=== PATIENT | female | born 1950 | race Caucasian/White ===

== ENCOUNTER 2016-05-09 05:15 | Day surgery (SDC) | payer OTHER ==
[2016-05-08 10:55] LABS: HEMATOCRIT 38.8 % (36.0-48.0); HEMOGLOBIN 12.7 g/dL (12-16); MCH 29.3 pg (26.0-34.0); MCHC 32.7 g/dL (31.0-37.0); MCV 89.6 fL (80.0-100.0); MEAN PLATELET VOLUME 10.4 fL (7.4-10.4); RBC 4.33 10x6/uL (4.00-5.40); RDW 12.7 % (11.5-14.5); WBC 12.1 10x3/uL (4.8-10.8)
[2016-05-08 11:26] LABS: CALC OSMOLALITY 289 mosm/kg (275-300); CALCIUM 9.8 mg/dL (8.5-10.1); CARBON DIOXIDE 34.1 mmol/L (21.0-32.0); CHLORIDE - SERUM 105 mmol/L (98-107); CREATININE - SERUM 0.7 mg/dL (0.6-1.3); GLUCOSE 85 mg/dL (74-106); POTASSIUM - SERUM 4.1 mmol/L (3.5-5.1); SODIUM 145 mmol/L (136-145); UREA NITROGEN 18 mg/dL (7-18); eGFR NON AFRICAN AMERICAN 90 mL/min (90-120)
[~2016-05-09] VITALS: Ht 172.7 cm; Wt 104.3 kg
[~2016-05-09 05:15] MED LIST: ASPIRIN EC325 M1 PO; BYSTOLIC20 MG PO; CYMBALTA60 MG PO; GLUCOPHAGE500 MG PO; LISINOPRIL-HCTZ1 T13 PO; PROBIOTIC1 EAC1 PO; VIMOVO 500-201 EACH PO
[2016-05-09 07:28] VITALS: BP 181/86; Ht 172.7 cm; Wt 104.3 kg
--- NOTE | 2016-05-09 10:33 | NUR ---
FAMILY CONTACTED AT 1000 WITH START TIME OF CASE
[2016-05-09] MEDS ORDERED: DEMEROL50 MG PO (11:03)
[2016-05-09] MEDS ORDERED: ZOFRAN4 MG PO (11:04)
--- NOTE | 2016-05-09 12:09 | NUR ---
1150-PT DOING WELL, NO DISTRESS TOLERATED 100% OF TRAY. IV DISCONTINUED WITH CATHETER INTACT. HELPED PATIENT TO BATHROOM PT DENIES ANY PAIN AT THIS TIME. RIGHT ARM IN SLING WITH ICE APPLIED. PT VOIDED WITHOUT ANY DIFFICULTIES, FAMILY AT BEDSIDE TO HELP PT GET DRESSED. PT DENIES ANY NEEDS OR CONCERNS AT THIS TIME
--- NOTE | 2016-05-09 12:30 | NUR ---
DISCHARGE INSTRUCTIONS REVIEWED WITH PATIENT AND SPOUSE. DISCHARGED HOME VIA WHEELCHAIR TO PRIVATE VEHICLE WITH DAUGHTER AND SPOUSE
--- NOTE | 2016-05-11 08:03 | OP ---
PATIENT NAME: KAIT SILVA MEDICAL RECORD: [id number] :54 LOCATION:[facility] ADMISSION DATE: SURGEON: LAUREN MORRIS MD DATE OF OPERATION: 05/09/2016 PREOPERATIVE DIAGNOSES: Right shoulder rotator cuff tear, acromioclavicular joint degenerative joint disease and impingement. POSTOPERATIVE DIAGNOSES: Right shoulder rotator cuff tear, acromioclavicular joint degenerative joint disease and impingement. PROCEDURE PERFORMED: Right shoulder subacromial decompression with open rotator cuff repair. SURGEON: Neymar Morris MD ANESTHESIA: General with interscalene block for postop pain. CONDITION: The patient tolerated the procedure well, was transferred to recovery room in stable condition at the termination of the procedure. INDICATIONS: This is a pleasant 71-year-old female that had an injury to her shoulder. This has been quite some time ago. This has gotten progressively worse. A shoulder MRI shows a significant tear. I discussed options with her including the fact that this would be likely difficult to repair. She understood and wished to proceed. OPERATIVE REPORT: The patient was taken to the operating room and placed in supine position. General anesthesia was obtained. She did get an interscalene block in the preop holding area. In the operating room, the right shoulder was confirmed to be the correct shoulder. She was then prepped and draped in the normal fashion. Procedure was begun by marking out portal sites and then injecting them with 0.25% Marcaine with epinephrine. The scope was placed in the posterior portal and then under direct visualization, an anterior portal was established. Through this area, the glenohumeral joint was notably intact. No significant degenerative changes. The biceps tendon was intact and with traction on this, it did not show any significant injury. The labrum was intact. Subscapularis looked good. The posterior portion of the cuff looked intact, coming up superiorly, though she had a very large defect in her anterior superior portion of the supraspinatus and infraspinatus tendons. I did take the scope out, pulled it up into the subacromial space, made a lateral portal and did debride a very large subacromial spur. I then proceeded to open laterally. I was able to get some good stitch quality into the posterior leaf of the cuff and bring this over towards the medial leaf towards labral biceps area and ____ in this area. This did give good coverage of the humeral head, although certainly was not completely as I would have liked it. Once I had this intact, I then pulled this down to a 4.5 [place] suture anchor. This overall gave good humeral head coverage. She was then copiously irrigated. I then closed with 2-0 Vicryl, then 3-0 Prolene. She was placed in a slingshot brace, awakened and transferred to recovery room in stable condition. This is a fairly significant tear. She will have to go slow, I am certainly concerned about her ability to heal this large tear. TRANSINT:[id number] Voice Confirmation ID: [id number] DOCUMENT ID: [id number] OPERATIVE REPORT [id number] KAIT SILVA, LAUREN LOPEZ MD at 0803 CC: [id number] DICTATION DATE: 05/09/16 1339 ROLL COVERER: 05/09/16 1358 [facility] 05/09/16 [place] [id number] [place] [address]
--- NOTE | 2016-06-27 12:19 | HP ---
PATIENT: NEGIN SILVA MEDICAL RECORD: [id number] ACCOUNT: [id number] LOCATION:[facility] : 54 ADMISSION DATE: 05/09/16 HISTORY AND PHYSICAL EXAMINATION DATE: 05/09/2016 HISTORY OF PRESENT ILLNESS: Negin is a pleasant 65-year-old female, who has been having significant pain in her shoulder. This has gotten progressively worse. She is no longer tolerating the pain. This is bad at night. She is having catching, popping and clicking. She is having difficulty time raising her arm. She cannot sleep on it. She has a complaint on review of systems of dry eyes, dry mouth, constipation, urinary frequency, restless legs, fatigue. She does have bruising and some sinus allergies. ALLERGIES: SHE IS ALLERGIC TO CODEINE, MORPHINE, SULFA AND TRAMADOL. PAST MEDICAL HISTORY: She has a history of arthritis, blood clots, chest pain, diabetes, heart disease and hypertension. PAST SURGICAL HISTORY: She previously had an angiogram with finger surgery and bladder surgery. PHYSICAL EXAMINATION: VITAL SIGNS: Her height is 5 foot 8 inches, weight is 226. Blood pressure 172/90, pulse 65. BMI is 34.4. HEENT: Within normal limits. CARDIOVASCULAR: Regular rate and rhythm. LUNGS: Clear. ABDOMEN: Benign. EXTREMITIES: Examination of her right shoulder reveals painful elevation. She has pain and weakness with abduction. She only has motion of 110-115 degrees of forward elevation and external rotation, 10 degrees internal rotation to the flank. NEUROLOGIC: She is neurovascularly intact otherwise. Her MRI shows findings consistent with AC joint degenerative joint disease, impingement and possible rotator cuff tear. PLAN: To bring her to the hospital for arthroscopy of the right shoulder with possible rotator cuff repair and subacromial decompression, distal clavicle excision. She understands and wished to proceed. TRANSINT:[id number] Voice Confirmation ID: [id number] DOCUMENT ID: [id number] HISTORY AND PHYSICAL [id number] NEGIN SILVA LAUREN MORRIS MD at 1219 CC: [id number] DICTATION DATE: 06/09/16 1151 DIRECT SUPPORT PROFESSIONAL: 06/09/16 1217 [facility] 05/09/16 [place] [id number]
== END 2016-05-09 12:30 | disposition home or self-care (01) ==
LOC: D.OPS 05:15 → D.PAN 07:00 → D.OPS 07:00
PROVIDERS: Anesthesiology
DX: M75.111 Incomplete rotator cuff tear or rupture of right shoulder, not specified as traumatic (principal); M13.811 Other specified arthritis, right shoulder; M75.41 Impingement syndrome of right shoulder

== ENCOUNTER 2016-07-09 06:58 | Emergency (ER) | payer OTHER ==
[2016-05-09 07:28] VITALS: BMI 35.0
[~2016-07-09 06:58] MED LIST changes: +DEMEROL50 MG PO; +ZOFRAN4 MG PO
== END 2016-07-09 08:23 | disposition home or self-care (01) ==
LOC: D.ER 06:58
DX: S50.01XA Contusion of right elbow, initial encounter (principal); S60.221A Contusion of right hand, initial encounter; S20.229A Contusion of unspecified back wall of thorax, initial encounter; W00.0XXA Fall on same level due to ice and snow, initial encounter; Y93.89 Activity, other specified; Y92.019 Unspecified place in single-family (private) house as the place of occurrence of the external cause; S62.304A Unspecified fracture of fourth metacarpal bone, right hand, initial encounter for closed fracture

== ENCOUNTER → 2017-07-09 17:48 | Outpatient (CLI) | payer OTHER ==
[2016-05-09 07:28] VITALS: BMI 35.0
== END | disposition home or self-care (01) ==
LOC: D.MAMMO 15:00
DX: Z12.31 Encounter for screening mammogram for malignant neoplasm of breast (principal)

== ENCOUNTER → 2017-07-23 20:01 | Outpatient (CLI) | payer OTHER ==
[2016-05-09 07:28] VITALS: BMI 35.0
== END | disposition home or self-care (01) ==
LOC: D.MAMMO 10:00
DX: N63.0 Unspecified lump in unspecified breast (principal)

== ENCOUNTER 2017-09-02 13:13 | Emergency (ER) | payer OTHER ==
[2016-05-09 07:28] VITALS: BMI 35.0
== END 2017-09-02 16:34 | disposition home or self-care (01) ==
LOC: D.ER 13:13
DX: S30.0XXA Contusion of lower back and pelvis, initial encounter (principal); W01.0XXA Fall on same level from slipping, tripping and stumbling without subsequent striking against object, initial encounter; Y93.89 Activity, other specified; Y92.89 Other specified places as the place of occurrence of the external cause; S39.012A Strain of muscle, fascia and tendon of lower back, initial encounter

== ENCOUNTER 2018-02-08 10:09 | Emergency (ER) | payer MEDICARE ==
[~2018-02-08] VITALS: Ht 172.7 cm; Wt 107.7 kg
[2018-02-08 10:10] VITALS: Ht 172.7 cm; Wt 107.7 kg
[2018-02-08] MEDS ORDERED: GABAPENTIN100 MG PO (10:12)
[2018-02-08] MEDS ORDERED: VITAMIN C500 MG PO (10:13)
[2018-02-08] MEDS ORDERED: NORVASC5 MG PO (10:13)
[2018-02-08] MEDS ORDERED: OSTEO BI-FLEX1 EAC1 PO (10:14)
[2018-02-08] MEDS ORDERED: DEMEROL100 MG PO (12:00)
[2018-02-08 12:48] VITALS: BP 147/74
[2018-02-12] MEDS ORDERED: GABAPENTIN100 MG PO (12:20)
== END 2018-02-08 12:50 | disposition home or self-care (01) ==
LOC: D.ER 10:09
DX: S82.842A Displaced bimalleolar fracture of left lower leg, initial encounter for closed fracture (principal); X50.1XXA Overexertion from prolonged static or awkward postures, initial encounter; Y93.01 Activity, walking, marching and hiking; Y92.017 Garden or yard in single-family (private) house as the place of occurrence of the external cause; E11.9 Type 2 diabetes mellitus without complications; I10 Essential (primary) hypertension

== ENCOUNTER 2018-02-13 06:30 | Day surgery (SDC) | payer MEDICARE ==
[2018-02-12 13:39] LABS: HEMOGLOBIN 13.4 g/dL (12-16); MCH 31.2 pg (26.0-34.0); MCHC 34.4 g/dL (31.0-37.0); MCV 90.9 fL (80.0-100.0); RBC 4.29 10x6/uL (4.00-5.40); WBC 11.9 10x3/uL (4.8-10.8)
[2018-02-12 13:53] LABS: CALC OSMOLALITY 280 mosm/kg (275-300); CALCIUM 8.9 mg/dL (8.5-10.1); CARBON DIOXIDE 28.8 mmol/L (21.0-32.0); CHLORIDE - SERUM 101 mmol/L (98-107); CREATININE - SERUM 0.8 mg/dL (0.6-1.3); GLUCOSE 96 mg/dL (74-106); POTASSIUM - SERUM 3.9 mmol/L (3.5-5.1); SODIUM 140 mmol/L (136-145); UREA NITROGEN 17 mg/dL (7-18); eGFR NON AFRICAN AMERICAN 76 mL/min (90-120)
[~2018-02-13] VITALS: Ht 172.7 cm; Wt 107.5 kg
[~2018-02-13 06:30] MED LIST changes: +DEMEROL100 MG PO; +GABAPENTIN100 MG PO; +NORVASC5 MG PO; +OSTEO BI-FLEX1 EAC1 PO; +VITAMIN C500 MG PO
[2018-02-13] MEDS ORDERED: PROZAC10 MG PO (08:23)
[2018-02-13 08:30] VITALS: BP 149/89; Ht 172.7 cm; Wt 107.5 kg
== END 2018-02-13 15:20 | disposition home or self-care (01) ==
LOC: D.OPS 06:30 → D.PAN 08:00 → D.OPS 08:30
PROVIDERS: Anesthesiology
DX: S82.62XA Displaced fracture of lateral malleolus of left fibula, initial encounter for closed fracture (principal); X58.XXXA Exposure to other specified factors, initial encounter; Z01.812 Encounter for preprocedural laboratory examination

== ENCOUNTER → 2018-03-05 16:39 | Outpatient (CLI) | payer MEDICARE ==
[2018-02-13 08:30] VITALS: BMI 36.1
[~2018-03-05 16:39] MED LIST changes: +PROZAC10 MG PO; +PROZAC20 MG PO; +RIFADIN300 MG PO; +VANCOMYCIN 1 GM/1 G1 IV
[2018-03-05 17:18] LABS: BASOPHILS 0.2 % (0-2); EOSINOPHILS 1.1 % (0-7); HEMATOCRIT 41.4 % (36.0-48.0); HEMOGLOBIN 13.8 g/dL (12-16); IMMATURE GRANULOCYTES 0.2 % (0-5); LYMPHOCYTES 31.9 % (15-50); MCH 29.9 pg (26.0-34.0); MCHC 33.3 g/dL (31.0-37.0); MCV 89.6 fL (80.0-100.0); MEAN PLATELET VOLUME 10.8 fL (7.4-10.4); MONOCYTES 9.3 % (2-11); NEUTROPHILS 57.3 % (40-80); PLATELET COUNT 321 10x3/uL (130-400); RBC 4.62 10x6/uL (4.00-5.40); RDW 12.9 % (11.5-14.5); WBC 12.5 10x3/uL (4.8-10.8)
[2018-03-05 17:23] LABS: ANION GAP 14.7 mmol/L (8-16); CALCIUM 9.2 mg/dL (8.5-10.1); CARBON DIOXIDE 27.1 mmol/L (21.0-32.0); CREATININE - SERUM 0.9 mg/dL (0.6-1.3); POTASSIUM - SERUM 3.8 mmol/L (3.5-5.1)
== END | disposition home or self-care (01) ==
LOC: D.LAB 16:39
PROVIDERS: Orthopaedic Surgery
DX: M25.572 Pain in left ankle and joints of left foot (principal); M00.9 Pyogenic arthritis, unspecified

== ENCOUNTER 2018-03-06 06:49 | Inpatient (IN) | payer MEDICARE ==
[~2018-03-06] VITALS: Ht 172.7 cm; Wt 107.5 kg
--- NOTE | ~2018-03-06 | MORECARE ---
CASE MANAGEMENT DISCHARGE SUMMARY PATIENT: KAIT SILVA UNIT: [id number] ADM DATE: 03/06/18 AGE: 67 : 52 SEX: F ROOM/BED: D.2204 AUTHOR: KIET GARZA PHYSICIAN: REFERRING PHYSICIAN: VICKY GONZALES MD DATE OF SERVICE: 03/14/18 Discharge Plan Patient Name: KAIT SILVA Facility: [facility]:[place] : 1950 Planned Disposition: Home Anticipated Discharge Date: Discharge Date: 03/12/2018 Expected LOS: 0 Initial Reviewer: [email or web address] Initial Review Date: 03/07/2018 Generated: 03/14/18 10:15 am Comments DCP- Discharge Planning Updated by [email or web address]: Radha Soto on 03/12/18 9:[address] Patient will be discharged home today with IV abx with [facility] after her 1500 dose of ABX. IMM given and explained. Patient's and daughter will be driving her home today. [employer] will start care at 8:00 am in the morning. Spoke with Deanne. Osmani with [employer] will deliver her medications to her. CM will continue to follow and assist with DC planning as needed. DCP- Discharge Planning Updated by [email or web address]: Radha Soto on 03/11/18 2:[address] iv abx solomon [facility]am: $214.27 a week 15 per day with supplies and 109.27 per week [place]: 744.96 total for everything with med ball patient will go with Osmani Diaz here for education at bedside DCP- Discharge Planning Updated by [email or web address]: Radha Soto on 03/07/18 2:[address] Patient Name: KAIT SILVA Admission Status: Elective Accout number: [id number] Admission Date: 03-06-2018 : 1950 Admission Diagnosis: Attending: VICKY GONZALES Current LOS: 1 Anticipated DC Date: Planned Disposition: Home Primary Insurance: [facility] MEDICARE SOLUTIONS Discharge Planning Comments: CM met with patient to assess discharge planning needs. Patient lives with her on her daughter's property and plans to return there at discharge. 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 Her daughter will be the one to drive her home. She has a ramp to enter her home. She has a BSC, cane, cruthes, walker, wheelchair, and shower chair at home. She is unsure if she will need home health. She is open to that & she questioned about home care like light cleaning. CM will make a referral to [facility]. CM will continue to follow and assist with DC planning as needed Unix Developer: Radha Soto DCPIA - Discharge Planning Initial Assessment Updated by [id number]: Radha Soto on 03/07/18 3:09 pm * Is the patient Alert and Oriented? Yes * How many steps to enter\exit or inside your home? ramp * PCP [facility] * Pharmacy [facility] * Preadmission Environment Home with Family * ADLs Independent * Equipment Bedside Commode Cane Crutch Glucometer Shower Chair Walker Wheelchair * List name and contact numbers for known caregivers / representatives who currently or will assist patient after discharge: BRANDI () * Verbal permission to speak to the caregivers and representatives has been obtained from the patient. N/A * Community resources currently utilized None * Additional services required to return to the preadmission environment? No * Can the patient safely return to the preadmission environment? Yes * Has this patient been hospitalized within the prior 30 days at any hospital? No Coverage Notice Reviewer: [id number] - Radha Soto Notice Issued Date-Time: 03/12/2018 9:55 Notice Type: IM Discharge Notice Notice Delivered To: Patient Relationship to Patient: Lead Programmer Analyst Name: Delivery Method: HAND - Hand Delivered Ayala Days: Prior Verbal Notification: Recipient Understood Notice: Yes Recipient Signature: Yes Med Rec Note Co-signed by Attending: Coverage Notice Comment: Last DP export: 03/12/18 2:54 Patient Name: KAIT SILVA Page [id number] at 0916 All edits/amendments must be made on the electronic document DICTATION DATE: 03/14/18914 FOOD AND DRUG RESEARCH SCIENTIST: HOSSEIN 03/14/18914 RPT#: [id number] DC DATE:03/12/18 STATUS: DIS IN [place] [id number] [place] [address] END OF REPORT
--- NOTE | ~2018-03-06 | MORECARE ---
CASE MANAGEMENT DISCHARGE SUMMARY PATIENT: KAIT SILVA UNIT: [id number] ADM DATE: 03/06/18 AGE: 67 : 52 SEX: F ROOM/BED: D.2204 AUTHOR: KIET GARZA PHYSICIAN: REFERRING PHYSICIAN: VICKY GONZALES MD DATE OF SERVICE: 03/11/18 Discharge Plan Patient Name: KAIT SILVA Facility: [facility]:[place] : 1950 Planned Disposition: Home Anticipated Discharge Date: Discharge Date: Expected LOS: Initial Reviewer: [email or web address] Initial Review Date: 03/07/2018 Generated: 03/11/18 4:41 pm Comments DCP- Discharge Planning Updated by [email or web address]: Radha Soto on 03/11/18 2:[address] iv abx solomon coram: $214.27 a week 15 per day with supplies and 109.27 per week [place]: 744.96 total for everything with med ball patient will go with Osmani Diaz here for education at bedside DCP- Discharge Planning Updated by [email or web address]: Radha Soto on 03/07/18 2:[address] Patient Name: KAIT SILVA Admission Status: Elective Accout number: [id number] Admission Date: 03-06-2018 : 1950 Admission Diagnosis: Attending: VICKY GONZALES Current LOS: 1 Anticipated DC Date: Planned Disposition: Home Primary Insurance: [facility] MEDICARE SOLUTIONS Discharge Planning Comments: CM met with patient to assess discharge planning needs. Patient lives with her on her daughter's property and plans to return there at discharge. 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 Her daughter will be the one to drive her home. She has a ramp to enter her home. She has a BSC, cane, cruthes, walker, wheelchair, and shower chair at home. She is unsure if she will need home health. She is open to that & she questioned about home care like light cleaning. CM will make a referral to [email or web address]. CM will continue to follow and assist with DC planning as needed Choreography Director: Radha Soto DCPIA - Discharge Planning Initial Assessment Updated by [email or web address]: Radha Soto on 03/07/18 3:09 pm * Is the patient Alert and Oriented? Yes * How many steps to enter\exit or inside your home? ramp * PCP [facility] * Pharmacy [facility] * Preadmission Environment Home with Family * ADLs Independent * Equipment Bedside Commode Cane Crutch Glucometer Shower Chair Walker Wheelchair * List name and contact numbers for known caregivers / representatives who currently or will assist patient after discharge: BRANDI () * Verbal permission to speak to the caregivers and representatives has been obtained from the patient. N/A * Community resources currently utilized None * Additional services required to return to the preadmission environment? No * Can the patient safely return to the preadmission environment? Yes * Has this patient been hospitalized within the prior 30 days at any hospital? No Last DP export: 03/11/18 11:45 Patient Name: KAIT SILVA Page [id number] at 1541 All edits/amendments must be made on the electronic document DICTATION DATE: 03/11/18 1541 JINRIKISHA DRIVER: HOSSEIN 03/11/18 1541 RPT#: [id number] DC DATE: STATUS: ADM IN [facility] [address] [place] [address] END OF REPORT
--- NOTE | ~2018-03-06 | MORECARE ---
CASE MANAGEMENT DISCHARGE SUMMARY PATIENT: KAIT SILVA UNIT: [id number] ADM DATE: 03/06/18 AGE: 67 : 52 SEX: F ROOM/BED: D.2204 AUTHOR: KIET GARZA PHYSICIAN: REFERRING PHYSICIAN: VICKY GONZALES MD DATE OF SERVICE: 03/11/18 Discharge Plan Patient Name: KAIT SILVA Facility: [facility]:[place] : 1950 Planned Disposition: Home Anticipated Discharge Date: Discharge Date: Expected LOS: Initial Reviewer: [email or web address] Initial Review Date: 03/07/2018 Generated: 03/11/18 1:45 pm DCP- Discharge Planning Updated by [email or web address]: Radha Soto on 03/07/18 2:[address] Patient Name: KAIT SILVA Admission Status: Elective Accout number: [id number] Admission Date: 03-06-2018 : 1950 Admission Diagnosis: Attending: VICKY GONZALES Current LOS: 1 Anticipated DC Date: Planned Disposition: Home Primary Insurance: [facility] MEDICARE SOLUTIONS Discharge Planning Comments: CM met with patient to assess discharge planning needs. Patient lives with her on her daughter's property and plans to return there at discharge. 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 Her daughter will be the one to drive her home. She has a ramp to enter her home. She has a BSC, cane, cruthes, walker, wheelchair, and shower chair at home. She is unsure if she will need home health. She is open to that & she questioned about home care like light cleaning. CM will make a referral to [facility]. CM will continue to follow and assist with DC planning as needed Natural Resource Manager: Radha Soto DCPIA - Discharge Planning Initial Assessment Updated by [email or web address]: Radha Soto on 03/07/18 3:09 pm * Is the patient Alert and Oriented? Yes * How many steps to enter\exit or inside your home? ramp * PCP [facility] * Pharm[facility] * Preadmission Environment Home with Family * ADLs Independent * Equipment Bedside Commode Cane Crutch Glucometer Shower Chair Walker Wheelchair * List name and contact numbers for known caregivers / representatives who currently or will assist patient after discharge: BRANDI () * Verbal permission to speak to the caregivers and representatives has been obtained from the patient. N/A * Community resources currently utilized None * Additional services required to return to the preadmission environment? No * Can the patient safely return to the preadmission environment? Yes * Has this patient been hospitalized within the prior 30 days at any hospital? No External Providers External Provider: [facility] Next Contact Date: Service Request Date: Service Type: Resolution: Reviewer: Comments: External Provider: [facility] Next Contact Date: Service Request Date: Service Type: Resolution: Reviewer: Comments: Last DP export: 03/07/18 2:14 p Patient Name: KAIT SILVA Page 24734 at 1245 All edits/amendments must be made on the electronic document DICTATION DATE: 03/11/18 124 CAR PAINTER: HOSSEIN 03/11/18 1245 RPT#: [id number] DC DATE: STATUS: ADM IN [facility] [address] [place] [address] END OF REPORT
--- NOTE | ~2018-03-06 | MORECARE ---
CASE MANAGEMENT DISCHARGE SUMMARY PATIENT: KAIT SILVA UNIT: [id number] ADM DATE: 03/06/18 AGE: 67 : 52 SEX: F ROOM/BED: D.2204 AUTHOR: KIET GARZA PHYSICIAN: REFERRING PHYSICIAN: VICKY GONZALES MD DATE OF SERVICE: 03/12/18 Discharge Plan Patient Name: KAIT SILVA Facility: [facility]:[place] : 1950 Planned Disposition: Home Anticipated Discharge Date: Discharge Date: Expected LOS: Initial Reviewer: [email or web address] Initial Review Date: 03/07/2018 Generated: 03/12/18 11:09 am Comments DCP- Discharge Planning Updated by [email or web address]: Radha Soto on 03/12/18 9:[address] Patient will be discharged home today with IV abx with [facility] after her 1500 dose of ABX. IMM given and explained. Patient's and daughter will be driving her home today. [employer] will start care at 8:00 am in the morning. Spoke with Karen. Conleyy with [employer] will deliver her medications to her. CM will continue to follow and assist with DC planning as needed. DCP- Discharge Planning Updated by [email or web address]: Radha Soto on 03/11/18 2:[address] iv abx solomon coram: $214.27 a week 15 per day with supplies and 109.27 per week [facility]: 744.96 total for everything with med ball patient will go with Osmani Diaz here for education at bedside DCP- Discharge Planning Updated by [id number]: Radha Soto on 03/07/18 2:[address] Patient Name: KAIT SILVA Admission Status: Elective Accout number: [id number] Admission Date: 03-06-2018 : 1950 Admission Diagnosis: Attending: VICKY GONZALES Current LOS: 1 Anticipated DC Date: Planned Disposition: Home Primary Insurance: [facility] MEDICARE SOLUTIONS Discharge Planning Comments: CM met with patient to assess discharge planning needs. Patient lives with her on her daughter's property and plans to return there at discharge. 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 Her daughter will be the one to drive her home. She has a ramp to enter her home. She has a BSC, cane, cruthes, walker, wheelchair, and shower chair at home. She is unsure if she will need home health. She is open to that & she questioned about home care like light cleaning. CM will make a referral to [email or web address]. CM will continue to follow and assist with DC planning as needed Junior Analyst: Radha Soto DCPIA - Discharge Planning Initial Assessment Updated by [email or web address]: Radha Soto on 03/07/18 3:09 pm * Is the patient Alert and Oriented? Yes * How many steps to enter\exit or inside your home? ramp * PCP ventura * Pharmacy [facility] * Preadmission Environment Home with Family * ADLs Independent * Equipment Bedside Commode Cane Crutch Glucometer Shower Chair Walker Wheelchair * List name and contact numbers for known caregivers / representatives who currently or will assist patient after discharge: BRANDI () * Verbal permission to speak to the caregivers and representatives has been obtained from the patient. N/A * Community resources currently utilized None * Additional services required to return to the preadmission environment? No * Can the patient safely return to the preadmission environment? Yes * Has this patient been hospitalized within the prior 30 days at any hospital? No External Providers External Provider: [facility] Next Contact Date: Service Request Date: Service Type: Resolution: Reviewer: Comments: Coverage Notice Reviewer: [id number] - Radha Soto Notice Issued Date-Time: 03/12/2018 9:55 Notice Type: IM Discharge Notice Notice Delivered To: Patient Relationship to Patient: Hot Top Liner Helper Name: Delivery Method: HAND - Hand Delivered Ayala Days: Prior Verbal Notification: Recipient Understood Notice: Yes Recipient Signature: Yes Med Rec Note Co-signed by Attending: Coverage Notice Comment: Last DP export: 03/12/18 9:01 Patient Name: KAIT SILVA Page 45530 at 1009 All edits/amendments must be made on the electronic document DICTATION DATE: 03/12/18 1009 SIZER MACHINE: HOSSEIN 03/12/18 1009 RPT#: [id number] [place] DATE: STATUS: ADM IN [facility] [address] [place] [address] END OF REPORT
--- NOTE | ~2018-03-06 | MORECARE ---
CASE MANAGEMENT DISCHARGE SUMMARY PATIENT: KAIT SILVA UNIT: [id number] ADM DATE: 03/06/18 AGE: 67 : 54 SEX: F ROOM/BED: D.2204 AUTHOR: KIET GARZA PHYSICIAN: REFERRING PHYSICIAN: VICKY GONZALES MD DATE OF SERVICE: 03/07/18 Discharge Plan Patient Name: KAIT SILVA Facility: [facility]:[place] : 1950 Planned Disposition: Home Anticipated Discharge Date: Discharge Date: Expected LOS: Initial Reviewer: [email or web address] Initial Review Date: 03/07/2018 Generated: 03/07/18 4:14 pm Comments DCP- Discharge Planning Updated by [email or web address]: Radha Soto on 03/07/18 2:[address] Patient Name: KAIT SILVA Admission Status: Elective Accout number: [id number] Admission Date: 03-06-2018 : 1950 Admission Diagnosis: Attending: VICKY GONZALES Current LOS: 1 Anticipated DC Date: Planned Disposition: Home Primary Insurance: [facility] MEDICARE SOLUTIONS Discharge Planning Comments: CM met with patient to assess discharge planning needs. Patient lives with her on her daughter's property and plans to return there at discharge. 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 Her daughter will be the one to drive her home. She has a ramp to enter her home. She has a BSC, cane, cruthes, walker, wheelchair, and shower chair at home. She is unsure if she will need home health. She is open to that & she questioned about home care like light cleaning. CM will make a referral to [employer]. CM will continue to follow and assist with DC planning as needed Medical Certification Specialist: Radha Soto DCPIA - Discharge Planning Initial Assessment Updated by [email or web address]: Radha Soto on 03/07/18 3:09 pm * Is the patient Alert and Oriented? Yes * How many steps to enter\exit or inside your home? ramp * PCP [facility] * [facility] * Preadmission Environment Home with Family * ADLs Independent * Equipment Bedside Commode Cane Crutch Glucometer Shower Chair Walker Wheelchair * List name and contact numbers for known caregivers / representatives who currently or will assist patient after discharge: BRANDI () * Verbal permission to speak to the caregivers and representatives has been obtained from the patient. N/A * Community resources currently utilized None * Additional services required to return to the preadmission environment? No * Can the patient safely return to the preadmission environment? Yes * Has this patient been hospitalized within the prior 30 days at any hospital? No Last DP export: 03/07/18 2:06 p Patient Name: KAIT SILVA Page 51700 at 1514 All edits/amendments must be made on the electronic document DICTATION DATE: 03/07/181513 INFORMATION SYSTEMS PROFESSOR: HOSSEIN 03/07/181513 RPT#: [id number] DC DATE: STATUS: ADM IN [facility] [address] [place] [address] END OF REPORT
--- NOTE | ~2018-03-06 | MORECARE ---
CASE MANAGEMENT DISCHARGE SUMMARY PATIENT: KAIT SILVA UNIT: [id number] ADM DATE: 03/06/18 AGE: 67 : 52 SEX: F ROOM/BED: D.2204 AUTHOR: KIET GARZA PHYSICIAN: REFERRING PHYSICIAN: VICKY GONZALES MD DATE OF SERVICE: 03/12/18 Discharge Plan Patient Name: KAIT SILVA Facility: [facility]:[place] : 1950 Planned Disposition: Home Anticipated Discharge Date: Discharge Date: Expected LOS: Initial Reviewer: [email or web address] Initial Review Date: 03/07/2018 Generated: 03/12/18 4:54 pm Comments DCP- Discharge Planning Updated by [email or web address]: Radha Soto on 03/12/18 9:[address] Patient will be discharged home today with IV abx with [facility] after her 1500 dose of ABX. IMM given and explained. Patient's and daughter will be driving her home today. [facility] will start care at 8:00 am in the morning. Spoke with Karen. Conleyy with [facility] will deliver her medications to her. CM will continue to follow and assist with DC planning as needed. DCP- Discharge Planning Updated by [email or web address]: Radha Soto on 03/11/18 2:[address] iv abx solomon [facility]am: $214.27 a week 15 per day with supplies and 109.27 per week [facility]: 744.96 total for everything with med ball patient will go with Osmani Diaz here for education at bedside DCP- Discharge Planning Updated by [email or web address]: Radha Soto on 03/07/18 2:[address] Patient Name: KAIT SILVA Admission Status: Elective Accout number: [id number] Admission Date: 03-06-2018 : 1950 Admission Diagnosis: Attending: VICKY GONZALES Current LOS: 1 Anticipated DC Date: Planned Disposition: Home Primary Insurance: [facility] MEDICARE SOLUTIONS Discharge Planning Comments: CM met with patient to assess discharge planning needs. Patient lives with her on her daughter's property and plans to return there at discharge. 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 Her daughter will be the one to drive her home. She has a ramp to enter her home. She has a BSC, cane, cruthes, walker, wheelchair, and shower chair at home. She is unsure if she will need home health. She is open to that & she questioned about home care like light cleaning. CM will make a referral to [facility]. CM will continue to follow and assist with DC planning as needed Chip Machine Operator: Radha Soto DCPIA - Discharge Planning Initial Assessment Updated by [email or web address]: Radha Soto on 03/07/18 3:09 pm * Is the patient Alert and Oriented? Yes * How many steps to enter\exit or inside your home? ramp * PCP [facility] * Pharmacy [facility] [place] * Preadmission Environment Home with Family * ADLs Independent * Equipment Bedside Commode Cane Crutch Glucometer Shower Chair Walker Wheelchair * List name and contact numbers for known caregivers / representatives who currently or will assist patient after discharge: BRANDI () * Verbal permission to speak to the caregivers and representatives has been obtained from the patient. N/A * Community resources currently utilized None * Additional services required to return to the preadmission environment? No * Can the patient safely return to the preadmission environment? Yes * Has this patient been hospitalized within the prior 30 days at any hospital? No External Providers External Provider: [facility] Next Contact Date: Service Request Date: Service Type: Resolution: Reviewer: Comments: Coverage Notice Reviewer: [id number] - Radha Soto Notice Issued Date-Time: 03/12/2018 9:55 Notice Type: IM Discharge Notice Notice Delivered To: Patient Relationship to Patient: Plush Brusher Name: Delivery Method: HAND - Hand Delivered Ayala Days: Prior Verbal Notification: Recipient Understood Notice: Yes Recipient Signature: Yes Med Rec Note Co-signed by Attending: Coverage Notice Comment: Last DP export: 03/12/18 9:09 Patient Name: KAIT SILVA Page [id number] at 1550 All edits/amendments must be made on the electronic document DICTATION DATE: 03/12/181553 INSOLE DEPARTMENT WORKER: HOSSEIN 03/12/181553 RPT#: [id number] DC DATE: STATUS: ADM IN [facility] [address] [place] [address] END OF REPORT
--- NOTE | ~2018-03-06 | MORECARE ---
CASE MANAGEMENT DISCHARGE SUMMARY PATIENT: KAIT SILVA UNIT: [id number] ADM DATE: 03/06/18 AGE: 67 : 52 SEX: F ROOM/BED: D.2204 AUTHOR: KIET GARZA PHYSICIAN: REFERRING PHYSICIAN: VICKY GONZALES MD DATE OF SERVICE: 03/12/18 Discharge Plan Patient Name: KAIT SILVA Facility: [facility]:[place] : 1950 Planned Disposition: Home Anticipated Discharge Date: Discharge Date: Expected LOS: Initial Reviewer: [email or web address] Initial Review Date: 03/07/2018 Generated: 03/12/18 11:01 am Comments DCP- Discharge Planning Updated by [email or web address]: Radha Soot on 03/12/18 9:[address] Patient will be discharged home today with IV abx with [facility] after her 1500 dose of ABX. IMM given and explained. Patient's and daughter will be driving her home today. [facility] will start care at 8:00 am in the morning. Spoke with Karen. Conleyy with [facility] will deliver her medications to her. CM will continue to follow and assist with DC planning as needed. DCP- Discharge Planning Updated by [id number]: Radha Soto on 03/11/18 2:[address] iv abx solomon coram: $214.27 a week 15 per day with supplies and 109.27 per week [facility]: 744.96 total for everything with med ball patient will go with Osmani Diaz here for education at bedside DCP- Discharge Planning Updated by [email or web address]: Radha Soto on 03/07/18 2:[address] Patient Name: KAIT SILVA Admission Status: Elective Accout number: [id number] Admission Date: 03-06-2018 : 1950 Admission Diagnosis: Attending: VICKY GONZALES Current LOS: 1 Anticipated DC Date: Planned Disposition: Home Primary Insurance: [facility] MEDICARE SOLUTIONS Discharge Planning Comments: CM met with patient to assess discharge planning needs. Patient lives with her on her daughter's property and plans to return there at discharge. 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 Her daughter will be the one to drive her home. She has a ramp to enter her home. She has a BSC, cane, cruthes, walker, wheelchair, and shower chair at home. She is unsure if she will need home health. She is open to that & she questioned about home care like light cleaning. CM will make a referral to [facility]. CM will continue to follow and assist with DC planning as needed Senior Ssis Developer: Radha Soto DCPIA - Discharge Planning Initial Assessment Updated by [email or web address]: Radha Soto on 03/07/18 3:09 pm * Is the patient Alert and Oriented? Yes * How many steps to enter\exit or inside your home? ramp * PCP [facility] * Pharmacy [facility] [place] * Preadmission Environment Home with Family * ADLs Independent * Equipment Bedside Commode Cane Crutch Glucometer Shower Chair Walker Wheelchair * List name and contact numbers for known caregivers / representatives who currently or will assist patient after discharge: BRANDI () * Verbal permission to speak to the caregivers and representatives has been obtained from the patient. N/A * Community resources currently utilized None * Additional services required to return to the preadmission environment? No * Can the patient safely return to the preadmission environment? Yes * Has this patient been hospitalized within the prior 30 days at any hospital? No Coverage Notice Reviewer: [id number] - Radha Soto Notice Issued Date-Time: 03/12/2018 9:55 Notice Type: IM Discharge Notice Notice Delivered To: Patient Relationship to Patient: Bacon Skin Lifter Name: Delivery Method: HAND - Hand Delivered Ayala Days: Prior Verbal Notification: Recipient Understood Notice: Yes Recipient Signature: Yes Med Rec Note Co-signed by Attending: Coverage Notice Comment: Last DP export: 03/11/18 2:41 Patient Name: KAIT SILVA Page 31972 at 1001 All edits/amendments must be made on the electronic document DICTATION DATE: 03/12/18 1001 TEST AND TURN UP TECHNICIAN: HOSSEIN 03/12/18 1001 RPT#: [id number] DC DATE: STATUS: ADM IN [facility] [address] [place] [address] END OF REPORT
--- NOTE | ~2018-03-06 | MORECARE ---
CASE MANAGEMENT DISCHARGE SUMMARY PATIENT: KAIT SILVA UNIT: [id number] ADM DATE: 03/06/18 AGE: 67 : 52 SEX: F ROOM/BED: D.2204 AUTHOR: KIET GARZA PHYSICIAN: REFERRING PHYSICIAN: VICKY GONZALES MD DATE OF SERVICE: 03/07/18 Discharge Plan Patient Name: KAIT SILVA Facility: [facility]:[place] : 1950 Planned Disposition: Home Anticipated Discharge Date: Discharge Date: Expected LOS: Initial Reviewer: [email or web address] Initial Review Date: 03/07/2018 Generated: 03/07/18 4:05 pm Patient Name: KAIT SILVA Page 77796 at 1506 All edits/amendments must be made on the electronic document DICTATION DATE: 03/07/18 1505 SUPERVISORY CIVIL ENGINEER: HOSSEIN 03/07/18 1505 RPT#: [id number] DC DATE: STATUS: ADM IN [facility] [address] [place] [address] END OF REPORT
[~2018-03-06 06:49] MED LIST changes: -PROZAC20 MG PO; -RIFADIN300 MG PO; -VANCOMYCIN 1 GM/1 G1 IV
[2018-03-06 08:34] VITALS: BP 143/78; BMI 36.1
[2018-03-06 18:08] VITALS: BMI 36.1
[2018-03-06 18:19] LABS: BASOPHILS 0.3 % (0-2); HEMATOCRIT 35.4 % (36.0-48.0); HEMOGLOBIN 11.4 g/dL (12-16); IMMATURE GRANULOCYTES 0.2 % (0-5); LYMPHOCYTES 35.7 % (15-50); MCH 29.4 pg (26.0-34.0); MCHC 32.2 g/dL (31.0-37.0); MCV 91.2 fL (80.0-100.0); MEAN PLATELET VOLUME 10.7 fL (7.4-10.4); NEUTROPHILS 53.8 % (40-80); RBC 3.88 10x6/uL (4.00-5.40)
[2018-03-06 18:23] LABS: PLATELET COUNT 234 10x3/uL (130-400)
[2018-03-06 18:36] LABS: CARBON DIOXIDE 25.2 mmol/L (21.0-32.0); CHLORIDE - SERUM 107 mmol/L (98-107); CREATININE - SERUM 0.8 mg/dL (0.6-1.3); POTASSIUM - SERUM 3.7 mmol/L (3.5-5.1); SODIUM 143 mmol/L (136-145); eGFR NON AFRICAN AMERICAN 76 mL/min (90-120)
[2018-03-06 18:37] LABS: CALC OSMOLALITY 288 mosm/kg (275-300); GLUCOSE 172 mg/dL (74-106); UREA NITROGEN 12 mg/dL (7-18)
[2018-03-06 21:32] VITALS: BP 149/70
[2018-03-07 05:19] VITALS: BP 135/61
[2018-03-07 08:30] VITALS: BP 170/73
[2018-03-07 12:45] VITALS: BP 142/67
[2018-03-07 12:50] VITALS: Ht 172.7 cm; Wt 107.5 kg
[2018-03-07 17:06] VITALS: BP 138/72
[2018-03-07 19:47] VITALS: BP 143/77
[2018-03-08 04:56] VITALS: BP 130/76
[2018-03-08 06:46] LABS: BASOPHILS 0.2 % (0-2); EOSINOPHILS 2.8 % (0-7); HEMATOCRIT 35.9 % (36.0-48.0); HEMOGLOBIN 11.6 g/dL (12-16); IMMATURE GRANULOCYTES 0.1 % (0-5); LYMPHOCYTES 37.9 % (15-50); MCH 29.5 pg (26.0-34.0); MCHC 32.3 g/dL (31.0-37.0); MCV 91.3 fL (80.0-100.0); MEAN PLATELET VOLUME 11.2 fL (7.4-10.4); MONOCYTES 10.2 % (2-11); NEUTROPHILS 48.8 % (40-80); PLATELET COUNT 218 10x3/uL (130-400); RBC 3.93 10x6/uL (4.00-5.40); RDW 12.7 % (11.5-14.5)
[2018-03-08 07:08] LABS: CALC OSMOLALITY 283 mosm/kg (275-300); CALCIUM 8.8 mg/dL (8.5-10.1); CARBON DIOXIDE 33.2 mmol/L (21.0-32.0); CHLORIDE - SERUM 104 mmol/L (98-107); CREATININE - SERUM 0.7 mg/dL (0.6-1.3); GLUCOSE 105 mg/dL (74-106); POTASSIUM - SERUM 3.9 mmol/L (3.5-5.1); SODIUM 143 mmol/L (136-145); UREA NITROGEN 11 mg/dL (7-18); eGFR NON AFRICAN AMERICAN 89 mL/min (90-120)
[2018-03-08 08:25] VITALS: BP 148/73
[2018-03-08 12:50] VITALS: BP 140/68
[2018-03-08 17:11] VITALS: BP 146/65
[2018-03-08 19:44] VITALS: BP 150/61
[2018-03-09 01:05] VITALS: BP 150/69
[2018-03-09 04:45] VITALS: BP 142/92
[2018-03-09 06:16] LABS: BASOPHILS 0.2 % (0-2); EOSINOPHILS 3.5 % (0-7); HEMATOCRIT 34.1 % (36.0-48.0); HEMOGLOBIN 11.2 g/dL (12-16); IMMATURE GRANULOCYTES 0.2 % (0-5); LYMPHOCYTES 33.4 % (15-50); MCH 29.4 pg (26.0-34.0); MCHC 32.8 g/dL (31.0-37.0); MCV 89.5 fL (80.0-100.0); MEAN PLATELET VOLUME 11.5 fL (7.4-10.4); MONOCYTES 9.4 % (2-11); NEUTROPHILS 53.3 % (40-80); PLATELET COUNT 210 10x3/uL (130-400); RBC 3.81 10x6/uL (4.00-5.40); RDW 12.7 % (11.5-14.5)
[2018-03-09 06:28] LABS: CALCIUM 8.4 mg/dL (8.5-10.1); CARBON DIOXIDE 29.3 mmol/L (21.0-32.0); CHLORIDE - SERUM 102 mmol/L (98-107); CREATININE - SERUM 0.7 mg/dL (0.6-1.3); GLUCOSE 100 mg/dL (74-106); SODIUM 140 mmol/L (136-145); eGFR NON AFRICAN AMERICAN 89 mL/min (90-120)
[2018-03-09 06:35] LABS: CALC OSMOLALITY 276 mosm/kg (275-300); POTASSIUM - SERUM 3.3 mmol/L (3.5-5.1); UREA NITROGEN 8 mg/dL (7-18)
[2018-03-09 09:18] VITALS: BP 138/36
[2018-03-09 12:28] VITALS: BP 150/69
[2018-03-09 16:28] VITALS: BP 132/67
[2018-03-09 20:06] VITALS: BP 127/66
[2018-03-10 04:26] VITALS: BP 134/68
[2018-03-10 05:02] LABS: BASOPHILS 0.2 % (0-2); EOSINOPHILS 3.9 % (0-7); HEMATOCRIT 34.8 % (36.0-48.0); HEMOGLOBIN 11.4 g/dL (12-16); IMMATURE GRANULOCYTES 0.1 % (0-5); LYMPHOCYTES 38.6 % (15-50); MCH 29.2 pg (26.0-34.0); MCHC 32.8 g/dL (31.0-37.0); MEAN PLATELET VOLUME 11.1 fL (7.4-10.4); MONOCYTES 9.1 % (2-11); NEUTROPHILS 48.1 % (40-80); PLATELET COUNT 210 10x3/uL (130-400); RBC 3.91 10x6/uL (4.00-5.40); RDW 12.7 % (11.5-14.5); WBC 9.6 10x3/uL (4.8-10.8)
[2018-03-10 05:09] LABS: CALC OSMOLALITY 280 mosm/kg (275-300); CARBON DIOXIDE 32.1 mmol/L (21.0-32.0); CHLORIDE - SERUM 103 mmol/L (98-107); CREATININE - SERUM 0.6 mg/dL (0.6-1.3); GLUCOSE 113 mg/dL (74-106); POTASSIUM - SERUM 3.1 mmol/L (3.5-5.1); SODIUM 141 mmol/L (136-145); eGFR NON AFRICAN AMERICAN > 90 mL/min (90-120)
[2018-03-10 05:14] LABS: UREA NITROGEN 11 mg/dL (7-18)
[2018-03-10 09:47] VITALS: BP 149/75
[2018-03-10 13:46] VITALS: BP 145/78
[2018-03-10 16:47] VITALS: BP 144/66
[2018-03-10 21:29] VITALS: BP 164/83
[2018-03-11 05:02] VITALS: BP 153/75
[2018-03-11 05:23] LABS: BASOPHILS 0.2 % (0-2); EOSINOPHILS 4.9 % (0-7); HEMATOCRIT 34.9 % (36.0-48.0); HEMOGLOBIN 11.5 g/dL (12-16); IMMATURE GRANULOCYTES 0.2 % (0-5); LYMPHOCYTES 38.9 % (15-50); MCH 29.6 pg (26.0-34.0); MCV 89.7 fL (80.0-100.0); MEAN PLATELET VOLUME 11.1 fL (7.4-10.4); MONOCYTES 8.9 % (2-11); NEUTROPHILS 46.9 % (40-80); PLATELET COUNT 238 10x3/uL (130-400); RBC 3.89 10x6/uL (4.00-5.40); RDW 12.9 % (11.5-14.5)
[2018-03-11 05:48] LABS: CALC OSMOLALITY 284 mosm/kg (275-300); CALCIUM 8.6 mg/dL (8.5-10.1); CARBON DIOXIDE 29.9 mmol/L (21.0-32.0); CHLORIDE - SERUM 104 mmol/L (98-107); CREATININE - SERUM 0.7 mg/dL (0.6-1.3); GLUCOSE 102 mg/dL (74-106); POTASSIUM - SERUM 3.3 mmol/L (3.5-5.1); SODIUM 143 mmol/L (136-145); UREA NITROGEN 12 mg/dL (7-18); eGFR NON AFRICAN AMERICAN 89 mL/min (90-120)
[2018-03-11 08:32] VITALS: BP 170/83
[2018-03-11 12:48] VITALS: BP 144/85
[2018-03-11 21:11] VITALS: BP 155/93
[2018-03-12 00:35] VITALS: BP 149/72
[2018-03-12 05:18] VITALS: BP 126/73
[2018-03-12 06:59] LABS: BASOPHILS 0.2 % (0-2); HEMOGLOBIN 11.6 g/dL (12-16); IMMATURE GRANULOCYTES 0.3 % (0-5); LYMPHOCYTES 35.8 % (15-50); MCH 29.2 pg (26.0-34.0); MCHC 32.2 g/dL (31.0-37.0); MCV 90.7 fL (80.0-100.0); MEAN PLATELET VOLUME 11.2 fL (7.4-10.4); MONOCYTES 8.5 % (2-11); NEUTROPHILS 51.2 % (40-80); PLATELET COUNT 237 10x3/uL (130-400); RBC 3.97 10x6/uL (4.00-5.40); RDW 12.9 % (11.5-14.5); WBC 11.9 10x3/uL (4.8-10.8)
[2018-03-12 07:17] LABS: CALC OSMOLALITY 281 mosm/kg (275-300); CALCIUM 9.1 mg/dL (8.5-10.1); CARBON DIOXIDE 29.5 mmol/L (21.0-32.0); CHLORIDE - SERUM 101 mmol/L (98-107); CREATININE - SERUM 0.8 mg/dL (0.6-1.3); GLUCOSE 126 mg/dL (74-106); POTASSIUM - SERUM 3.6 mmol/L (3.5-5.1); SODIUM 140 mmol/L (136-145); UREA NITROGEN 15 mg/dL (7-18); eGFR NON AFRICAN AMERICAN 76 mL/min (90-120)
[2018-03-12 08:35] VITALS: BP 168/61
[2018-03-12] MEDS ORDERED: RIFADIN300 MG PO (09:37)
[2018-03-12] MEDS ORDERED: VANCOMYCIN 1 GM/1 G1 IV ×2 (09:37→10:09)
[2018-03-12 09:54] LABS: ERYTHROCYTE SEDIMENTATION RATE 32 mm/hr (0-30)
[2018-03-12 11:44] VITALS: BP 131/57
[2018-03-12] MEDS ORDERED: PROZAC20 MG PO (12:10)
== END 2018-03-12 17:32 | disposition home health service (06) | DRG 857 ==
LOC: D.OPS 06:49 → D.MS 06:49 → D.OPS 08:45 → EDSTATUS 08:45 → D.MS 17:35 → D.OPS 17:35 → D.MS 17:36 → D.OPS 17:36 → D.MS 17:36
PROVIDERS: Internal Medicine Nephrology; Orthopaedic Surgery
PROC: 0QDK0ZZ Extraction of Left Fibula, Open Approach (ICD-10-PCS; principal; 2018-03-06 08:45)
DX: T81.42XA Infection following a procedure, deep incisional surgical site, initial encounter (principal); T81.32XA Disruption of internal operation (surgical) wound, not elsewhere classified, initial encounter; M86.9 Osteomyelitis, unspecified; E11.9 Type 2 diabetes mellitus without complications; I10 Essential (primary) hypertension; I48.91 Unspecified atrial fibrillation; B95.7 Other staphylococcus as the cause of diseases classified elsewhere

== ENCOUNTER 2018-03-15 15:18 | Outpatient (CLI) | payer MEDICARE ==
[2018-03-07 12:50] VITALS: BMI 36.0
[~2018-03-15 15:18] MED LIST changes: +PROZAC20 MG PO; +RIFADIN300 MG PO; +VANCOMYCIN 1 GM/1 G1 IV
== END 2018-03-15 16:06 | disposition home or self-care (01) ==
LOC: D.OPS 15:18
DX: T84.59XA Infection and inflammatory reaction due to other internal joint prosthesis, initial encounter (principal); Z01.812 Encounter for preprocedural laboratory examination

== ENCOUNTER → 2018-03-18 11:21 | Outpatient (CLI) | payer MEDICARE ==
[2018-03-07 12:50] VITALS: BMI 36.0
[2018-03-18 11:34] LABS: BASOPHILS 0.4 % (0-2); EOSINOPHILS 2.8 % (0-7); HEMATOCRIT 36.8 % (36.0-48.0); HEMOGLOBIN 12.1 g/dL (12-16); IMMATURE GRANULOCYTES 0.3 % (0-5); LYMPHOCYTES 28.9 % (15-50); MCH 29.2 pg (26.0-34.0); MCHC 32.9 g/dL (31.0-37.0); MCV 88.7 fL (80.0-100.0); MEAN PLATELET VOLUME 10.6 fL (7.4-10.4); MONOCYTES 16.4 % (2-11); NEUTROPHILS 51.2 % (40-80); PLATELET COUNT 282 10x3/uL (130-400); RBC 4.15 10x6/uL (4.00-5.40); RDW 12.8 % (11.5-14.5)
[2018-03-18 11:47] LABS: C-REACTIVE PROTEIN 3.6 mg/dL (0.0-0.9); CREATININE - SERUM 0.7 mg/dL (0.6-1.3); VANCOMYCIN - TROUGH 15.3 ug/mL (10.0-20.0)
[2018-03-18 14:19] LABS: ERYTHROCYTE SEDIMENTATION RATE 40 mm/hr (0-30)
== END | disposition home or self-care (01) ==
LOC: D.LABREF 11:21
PROVIDERS: Student in an Organized Health Care Education/Training Program
DX: L08.9 Local infection of the skin and subcutaneous tissue, unspecified (principal)

== ENCOUNTER → 2018-12-03 17:05 | Outpatient (CLI) | payer MEDICARE, OTHER ==
[2018-03-07 12:50] VITALS: BMI 36.0
[~2018-12-03 17:05] MED LIST changes: +HYDROCODONE-A1 UDTA2 PO; +VITAMIN D2000 UNIT PO; +Vancomycin 1.25 GM/N IV
== END | disposition home or self-care (01) ==
LOC: D.LABREF 17:05
PROVIDERS: ATTEND Orthopaedic Surgery
DX: M86.679 Other chronic osteomyelitis, unspecified ankle and foot (principal)

== ENCOUNTER 2018-12-04 10:34 | Inpatient (IN) | payer MEDICARE, OTHER ==
[~2018-12-04] VITALS: Ht 172.7 cm; Wt 101.8 kg
[2018-12-04] VITALS (8 sets, daily range): BP systolic 137–166; BP diastolic 68–79; BMI 34.2
[~2018-12-04 10:34] MED LIST changes: -HYDROCODONE-A1 UDTA2 PO; +LISINOPRIL-HCT1 EAC7 PO; -LISINOPRIL-HCTZ1 T13 PO; -VITAMIN D2000 UNIT PO; -Vancomycin 1.25 GM/N IV
[2018-12-04 11:07] LABS: HEMATOCRIT 38.3 % (36.0-48.0); HEMOGLOBIN 12.9 g/dL (12-16); LYMPHOCYTES 34.4 % (15-50); MCH 29.3 pg (26.0-34.0); MCHC 33.7 g/dL (31.0-37.0); NEUTROPHILS 59.2 % (40-80); PLATELET COUNT 276 10x3/uL (130-400); RDW 12.3 % (11.5-14.5); WBC 9.1 10x3/uL (4.8-10.8)
[2018-12-04 11:19] LABS: ANION GAP 10.4 mmol/L (8-16); CALCIUM 9.2 mg/dL (8.5-10.1); CARBON DIOXIDE 30.4 mmol/L (21.0-32.0); CREATININE - SERUM 0.9 mg/dL (0.6-1.3); POTASSIUM - SERUM 3.8 mmol/L (3.5-5.1)
--- NOTE | 2018-12-04 11:55 | NUR ---
[facility] CALLED AT THIS TIME FOR SUICIDE SCREEN.
--- NOTE | 2018-12-04 12:15 | NUR ---
DR. COLLADO NOTIFIED AND REVIEWED PT'S BEHAVIOR AND ASSESSMENTRESULTS. PT IS A LOW RISK PER DR. COLLADO. DR. COLLADO STTAED TO GIVE RESOURCES TO PT AT TIME OF DISCHARGE. NO FURTHER ORDERS AT THIS TIME. RESOURCES REVIEWED WITH PT AND SHE VERBALIZED UNDERSTANDING.
--- NOTE | 2018-12-04 19:27 | NUR ---
PT REPORTS BOTTOM FRONT TOOTH IS LOOSE, DEMONSTRATED IT TO THIS NURSE. WILL REPORT TO ANESTHESIA FOR FOLLOWUP.
--- NOTE | 2018-12-04 19:40 | NUR ---
RECEIVED PT FROM OR VIA STRETCHER. DROWSY. ORIENTED X4. FAMILY AT BEDSIDE. DENIES PAIN AT THIS TIME. REPORTS LOOSE TOOTH. RESP SHALLOW NONLABORED. O2 @ 2L/NC. DRSG NOTED TO LLE WITH HEMOVAC WITH BLOODY DRAINAGE NOTED. PEDAL PULSES GOOD. NO EDEMA. SALINE LOCK NOTED TO RT AC. SCD ON. LEONID HOSE ON RLE. V/S STABLE. SR ELEVATED X2. CL IN REACH.
--- NOTE | 2018-12-05 00:05 | NUR ---
MEDICATED WITH DEMEROL FOR C/O PAIN IN LLE. FAMILY AT BEDSIDE. HAS BEEN INCONT OF BLADDER AT TIMES TONIGHT. CL IN REACH.
[2018-12-05 02:02] VITALS: BP 151/82
[2018-12-05 05:04] VITALS: BP 138/84
[2018-12-05 05:15] LABS: BASOPHILS 0.2 % (0-2); EOSINOPHILS 1.7 % (0-7); HEMATOCRIT 35.7 % (36.0-48.0); HEMOGLOBIN 11.8 g/dL (12-16); IMMATURE GRANULOCYTES 0.2 % (0-5); LYMPHOCYTES 25.2 % (15-50); MCH 29.1 pg (26.0-34.0); MCHC 33.1 g/dL (31.0-37.0); MCV 87.9 fL (80.0-100.0); MEAN PLATELET VOLUME 10.5 fL (7.4-10.4); MONOCYTES 8.2 % (2-11); NEUTROPHILS 64.5 % (40-80); PLATELET COUNT 251 10x3/uL (130-400); RBC 4.06 10x6/uL (4.00-5.40)
[2018-12-05 05:20] LABS: WBC 12.6 10x3/uL (4.8-10.8)
[2018-12-05 05:27] LABS: ANION GAP 11.8 mmol/L (8-16); CALCIUM 8.2 mg/dL (8.5-10.1); CARBON DIOXIDE 27.9 mmol/L (21.0-32.0); CREATININE - SERUM 0.9 mg/dL (0.6-1.3); POTASSIUM - SERUM 3.7 mmol/L (3.5-5.1)
[2018-12-05 06:16] VITALS: Ht 172.7 cm; Wt 101.8 kg
[2018-12-05] MEDS ORDERED: VITAMIN D2000 UNIT PO (07:39)
--- NOTE | 2018-12-05 07:41 | NUR ---
ALERT AND ORIENTED. LUNGS CLEAR BILATERALLY IN ALL HOU. HEART SOUNDS S1 AND S2 HEARD IN ALL HOU. BOWEL SOUNDS ACTIVE X 4. JOHN WRAP AND HEMOVAC TO LEFT ANKLE. IV TO RIGHT ACT PATENT WITHOUT REDNESS. SKIN INTACT WITHOUT REDNESS. ASSISTED TO BSC PER REQUEST. DENIES FURTHER NEEDS. BED LOW. CALL GAMBINO AND PERSONAL ITEMS IN REACH. WILL CONTINUE TO MONITOR.
[2018-12-05 09:37] VITALS: BP 146/64
--- NOTE | 2018-12-05 11:26 | NUR ---
PATIENT SLEEPING. WILL CONTINUE TO MONITOR.
--- NOTE | 2018-12-05 13:02 | NUR ---
RESTING IN BED. DENIES PAIN. DENIES NEEDS. WILL CONTINUE TO MONITOR.
[2018-12-05 13:07] VITALS: BP 141/64
--- NOTE | 2018-12-05 15:56 | NUR ---
RESTING IN BED. DENIES PAIN. DENIES NEEDS. IV REMOVED FROM RFA WITH TIP INTACT. USING REAL PICC FOR ABX. WILL CONTINUE TO MONITOR.
[2018-12-05 18:14] VITALS: BP 115/46
--- NOTE | 2018-12-05 18:24 | NUR ---
RESTING IN BED. DENIES PAIN. DENIES NEEDS. BED LOW. CALL GAMBINO AND PERSONAL ITEMS IN REACH. AT BEDSIDE.
--- NOTE | 2018-12-05 19:45 | NUR ---
BARTOLO IN BED. A&O X4. DRESSING TO LEFT ANKLE C/D/I. HEMOVAC COMPRESSED. DENIES PAIN, NO NEEDS VOICED AT THIS TIME, WILL CONTINUE TO MONITOR.
[2018-12-05 20:43] VITALS: BP 142/58
[2018-12-06 00:54] VITALS: BP 104/68
--- NOTE | 2018-12-06 04:34 | NUR ---
I have reviewed this patient and I concur with the Shift Assessment completed by the Licensed Practical Nurse today this shift.
[2018-12-06 05:41] VITALS: BP 149/67
[2018-12-06 06:45] LABS: BASOPHILS 0.2 % (0-2); HEMATOCRIT 34.5 % (36.0-48.0); HEMOGLOBIN 11.3 g/dL (12-16); IMMATURE GRANULOCYTES 0.2 % (0-5); LYMPHOCYTES 28.2 % (15-50); MCH 28.8 pg (26.0-34.0); MCHC 32.8 g/dL (31.0-37.0); MEAN PLATELET VOLUME 10.7 fL (7.4-10.4); MONOCYTES 9.5 % (2-11); NEUTROPHILS 58.9 % (40-80); PLATELET COUNT 233 10x3/uL (130-400); RBC 3.92 10x6/uL (4.00-5.40); RDW 13.1 % (11.5-14.5); WBC 11.9 10x3/uL (4.8-10.8)
--- NOTE | 2018-12-06 07:51 | NUR ---
ALERT AND ORIENTED. LUNGS CLEAR BILATERALLY IN ALL HOU. HEART SOUNDS S1 AND S2 HEARD IN ALL HOU. BOWEL SOUNDS ACTIVE X 4. SKIN INTACT WITHOUT REDNESS. JOHN WRAP TO LEFT LOWER LEG. HEMOVAC DRAIN TO LLE. PICC TO REAL PATENT WITHOUT REDNESS. DENIES PAIN. DENIES NEEDS. BED LOW. CALL GAMBINO AND PERSONAL ITEMS IN REACH. WILL CONTINUE TO MONITOR.
[2018-12-06 08:28] VITALS: BP 161/70
--- NOTE | 2018-12-06 11:16 | NUR ---
SITTING IN CHAIR AT BEDSIDE. DENIES PAIN. DENIES NEEDS. WILL CONTINUE TO MONITOR.
[2018-12-06 12:42] VITALS: BP 139/74
--- NOTE | 2018-12-06 13:13 | NUR ---
RESTING IN BED. DENIES PAIN. DENIES NEEDS. PLACED IN TEMPORARY CONTACT ISO FOR POSSIBLE GROWTH OF STAPH IN BLOOD. EDUCATION PROVIDED.
[2018-12-06] MEDS ORDERED: Vancomycin 1.25 GM/N IV (13:30)
[2018-12-06] MEDS ORDERED: HYDROCODONE-A1 UDTA2 PO (13:31)
--- NOTE | 2018-12-06 15:12 | MORECARE ---
CASE MANAGEMENT DISCHARGE SUMMARY PATIENT: KAIT SILVA UNIT: [id number] ADM DATE: 12/04/18 AGE: 68 : 52 SEX: F ROOM/BED: D.2205 AUTHOR: KIET GARZA PHYSICIAN: REFERRING PHYSICIAN: VICKY GONZALES MD DATE OF SERVICE: 12/06/18 Discharge Plan Patient Name: KAIT SILVA Facility: [facility]:[place] : 1950 Planned Disposition: Home with Infusion Therapy Services Anticipated Discharge Date: Discharge Date: Expected LOS: Initial Reviewer: [email or web address] Initial Review Date: 12/04/2018 Generated: 12/06/18 4:12 pm DCPIA - Discharge Planning Initial Assessment Updated by [id number]: Radha Soto on 12/06/18 3:05 pm * Is the patient Alert and Oriented? Yes * How many steps to enter\exit or inside your home? ramp * PCP [facility] * Pharmacy [facility] * Preadmission Environment Home with Family * ADLs Independent * Equipment Bedside Commode Cane Rolling Walker Shower Chair Walker Wheelchair * List name and contact numbers for known caregivers / representatives who currently or will assist patient after discharge: jaz * Verbal permission to speak to the caregivers and representatives has been obtained from the patient. N/A * Community resources currently utilized Home Health * Please name any agencies selected above. [facility] * Additional services required to return to the preadmission environment? Yes * Can the patient safely return to the preadmission environment? Yes * Has this patient been hospitalized within the prior 30 days at any hospital? No External Providers External Provider: [facility] Next Contact Date: Service Request Date: Service Type: Resolution: Reviewer: Comments: External Provider: [facility] Next Contact Date: Service Request Date: Service Type: Resolution: Reviewer: Comments: Patient Name: KAIT SILVA Page 56991 at 1512 All edits/amendments must be made on the electronic document DICTATION DATE: 12/06/18 151 CHIEF OF VITAL STATISTICS: HOSSEIN 12/06/18 151 RPT#: [id number] DC DATE: STATUS: ADM IN [facility] [address] [place] [address] END OF REPORT
[2018-12-06 16:06] VITALS: BP 141/64
--- NOTE | 2018-12-06 16:31 | MORECARE ---
CASE MANAGEMENT DISCHARGE SUMMARY PATIENT: KAIT SILVA UNIT: [id number] ADM DATE: 12/04/18 AGE: 68 : 52 SEX: F ROOM/BED: D.2207 AUTHOR: GREG,DOC PHYSICIAN: REFERRING PHYSICIAN: VICKY GONZALES MD DATE OF SERVICE: 12/06/18 Discharge Plan Patient Name: KAIT SILVA Facility: [facility]:[place] : 1950 Planned Disposition: Home with Infusion Therapy Services Anticipated Discharge Date: Discharge Date: Expected LOS: Initial Reviewer: [email or web address] Initial Review Date: 12/04/2018 Generated: 12/06/18 5:30 pm Comments DCP- Discharge Planning Updated by [email or web address]: Radha Soto on 12/06/18 3:[address] PATIENT WILL; BE DISCHARGING HOME WITH IV ABX FROM [facility] WAS 144.02 PER WEEK [facility] WILL BE HER HOME HEALTH, [facility] AND [facility] WERE GOING GET TOGETHER TO [facility]. CM WILL CONTINUE TO FOLLOW AND ASSIST NEEDED GRANT IS THE [facility] - [phone] [facility] [phone] DCPIA - Discharge Planning Initial Assessment Updated by [email or web address]: Radha Soto on 12/06/18 3:05 pm * Is the patient Alert and Oriented? Yes * How many steps to enter\exit or inside your home? ramp * PCP [facility] * Pharmacy [facility] * Preadmission Environment Home with Family * ADLs Independent * Equipment Bedside Commode Cane Rolling Walker Shower Chair Walker Wheelchair * List name and contact numbers for known caregivers / representatives who currently or will assist patient after discharge: jaz * Verbal permission to speak to the caregivers and representatives has been obtained from the patient. N/A * Community resources currently utilized Home Health * Please name any agencies selected above. [facility] * Additional services required to return to the preadmission environment? Yes * Can the patient safely return to the preadmission environment? Yes * Has this patient been hospitalized within the prior 30 days at any hospital? No Last DP export: 12/06/18 2:12 pm Patient Name: KAIT SILVA Page 99268 at 1631 All edits/amendments must be made on the electronic document DICTATION DATE: 12/06/18 163 QUARTZ MINER: HOSSEIN 12/06/18 1630 RPT#: [id number] DC DATE: STATUS: ADM IN [facility] [address] [place] [address] END OF REPORT
--- NOTE | 2018-12-06 16:42 | MORECARE ---
CASE MANAGEMENT DISCHARGE SUMMARY PATIENT: KAIT SILVA UNIT: [id number] ADM DATE: 12/04/18 AGE: 68 : 52 SEX: F ROOM/BED: D.2207 AUTHOR: KIET GARZA PHYSICIAN: REFERRING PHYSICIAN: VICKY GONZALES MD DATE OF SERVICE: 12/06/18 Discharge Plan Patient Name: KAIT SILVA Facility: [facility]:[place] : 1950 Planned Disposition: Home with Infusion Therapy Services Anticipated Discharge Date: Discharge Date: Expected LOS: Initial Reviewer: [email or web address] Initial Review Date: 12/04/2018 Generated: 12/06/18 5:41 pm Comments DCP- Discharge Planning Updated by [email or web address]: Radha Soto on 12/06/18 3:[address] SPOKE WITH MILE AT [facility] AND THEY WILL ACCEPT PATIENT DCP- Discharge Planning Updated by [id number]: Radha Soto on 12/06/18 3:[address] PATIENT WILL; BE DISCHARGING HOME WITH IV ABX FROM [facility] WAS 144.02 PER WEEK [facility] WILL BE HER HOME HEALTH, [facility] AND [facility] WERE GOING GET TOGETHER TO [facility]. CM WILL CONTINUE TO FOLLOW AND ASSIST NEEDED GRANT IS THE [facility] - [phone] [facility] [phone] DCPIA - Discharge Planning Initial Assessment Updated by [email or web address]: Radha Soto on 12/06/18 3:05 pm * Is the patient Alert and Oriented? Yes * How many steps to enter\exit or inside your home? ramp * PCP [facility] * Pharmacy [facility] * Preadmission Environment Home with Family * ADLs Independent * Equipment Bedside Commode Cane Rolling Walker Shower Chair Walker Wheelchair * List name and contact numbers for known caregivers / representatives who currently or will assist patient after discharge: jaz * Verbal permission to speak to the caregivers and representatives has been obtained from the patient. N/A * Community resources currently utilized Home Health * Please name any agencies selected above. [facility] * Additional services required to return to the preadmission environment? Yes * Can the patient safely return to the preadmission environment? Yes * Has this patient been hospitalized within the prior 30 days at any hospital? No Last DP export: 12/06/18 3:31 pm Patient Name: KAIT SILVA Page 69199 at 1642 All edits/amendments must be made on the electronic document DICTATION DATE: 12/06/181640 VEHICLE COST ENGINEER: HOSSEIN 12/06/181640 RPT#: [id number] DC DATE: STATUS: ADM IN [facility] [address] [place] [address] END OF REPORT
--- NOTE | 2018-12-06 17:27 | NUR ---
RESTING IN BED. DENIES PAIN. DENIES NEEDS.
[2018-12-06] MEDS ORDERED: VANCOMYCIN 1 GM/1 G1 IV (17:42)
--- NOTE | 2018-12-06 18:31 | NUR ---
DISCHARGE EDUCATION PROVIDED BOTH WRITTEN AND VERBAL. VERBALIZED UNDERSTANDING. DENIES FURTHER QUESTIONS. NO IV TO REMOVE. DISCHARGED WITH REAL PICC FOR HOME ABX. PATIENT DISCHARGED HOME WITH WITH ALL BELONGINGS.
--- NOTE | 2018-12-09 14:17 | MORECARE ---
CASE MANAGEMENT DISCHARGE SUMMARY PATIENT: KAIT SILVA UNIT: [id number] ADM DATE: 12/04/18 AGE: 68 : 52 SEX: F ROOM/BED: D.2207 AUTHOR: GREGDOC PHYSICIAN: REFERRING PHYSICIAN: VICKY GONZALES MD DATE OF SERVICE: 12/09/18 Discharge Plan Patient Name: KAIT SILVA Facility: [facility]:[place] : 1950 Planned Disposition: Home with Infusion Therapy Services Anticipated Discharge Date: Discharge Date: 12/06/2018 Expected LOS: Initial Reviewer: [id number] Initial Review Date: 12/04/2018 Generated: 12/09/18 3:17 pm Comments DCP- Discharge Planning Updated by [email or web address]: Radha Soto on 12/06/18 3:[address] SPOKE WITH MILE AT [facility] AND THEY WILL ACCEPT PATIENT DCP- Discharge Planning Updated by [email or web address]: Radha Soto on 12/06/18 3:[address] PATIENT WILL; BE DISCHARGING HOME WITH IV ABX FROM [facility] WAS 144.02 PER WEEK [facility] WILL BE HER HOME HEALTH, [facility] WERE GOING GET TOGETHER [facility]. CM WILL CONTINUE TO FOLLOW AND ASSIST NEEDED GRANT IS THE [facility] - [phone] [facility] [phone] DCPIA - Discharge Planning Initial Assessment Updated by [id number]: Radha Soto on 12/06/18 3:05 pm * Is the patient Alert and Oriented? Yes * How many steps to enter\exit or inside your home? ramp * PCP [facility] * Pharmacy [facility] * Preadmission Environment Home with Family * ADLs Independent * Equipment Bedside Commode Cane Rolling Walker Shower Chair Walker Wheelchair * List name and contact numbers for known caregivers / representatives who currently or will assist patient after discharge: jaz * Verbal permission to speak to the caregivers and representatives has been obtained from the patient. N/A * Community resources currently utilized Home Health * Please name any agencies selected above. [facility] * Additional services required to return to the preadmission environment? Yes * Can the patient safely return to the preadmission environment? Yes * Has this patient been hospitalized within the prior 30 days at any hospital? No Last DP export: 12/06/18 3:42 pm Patient Name: KAIT SILVA Page 99191 at 1417 All edits/amendments must be made on the electronic document DICTATION DATE: 12/09/181416 CRIMPING PRESS OPERATOR: HOSSEIN 12/09/181416 RPT#: [id number] DC DATE:12/06/18 STATUS: DIS IN [facility] [address] [place] [address] END OF REPORT
[2018-12-13 16:09] LABS: AEROBE ID Final report (()); RESULT 1 Serratia marcescens (())
== END 2018-12-06 18:32 | disposition home health service (06) | DRG 982 ==
LOC: D.OPS 10:34 → D.MS 18:25 → D.SDCHOLD 18:25 → D.MS 19:41
PROVIDERS: ADMIT Orthopaedic Surgery; ATTEND Orthopaedic Surgery
PROC: 0JDP0ZZ Extraction of Left Lower Leg Subcutaneous Tissue and Fascia, Open Approach (ICD-10-PCS; principal; 2018-12-04 14:00)
PROC: 0SPG04Z Removal of Internal Fixation Device from Left Ankle Joint, Open Approach (ICD-10-PCS; 2018-12-04 14:00)
PROC: 05HY33Z Insertion of Infusion Device into Upper Vein, Percutaneous Approach (ICD-10-PCS; 2018-12-05)
DX: E11.69 Type 2 diabetes mellitus with other specified complication (principal); M86.8X6 Other osteomyelitis, lower leg; M86.672 Other chronic osteomyelitis, left ankle and foot; E11.9 Type 2 diabetes mellitus without complications; I10 Essential (primary) hypertension; I48.91 Unspecified atrial fibrillation

== ENCOUNTER → 2018-12-09 10:48 | Outpatient (CLI) | payer MEDICARE, OTHER ==
[2018-12-05 06:16] VITALS: BMI 34.1
[~2018-12-09 10:48] MED LIST changes: +ELIQUIS5 MG PO; +HYDROCODONE-A1 UDTA2 PO; +LEVAQUIN750 MG PO; +VITAMIN D2000 UNIT PO; +Vancomycin 1.25 GM/N IV
[2018-12-09 11:13] LABS: BASOPHILS 0.3 % (0-2); EOSINOPHILS 3.2 % (0-7); HEMATOCRIT 38.3 % (36.0-48.0); HEMOGLOBIN 13.1 g/dL (12-16); IMMATURE GRANULOCYTES 0.2 % (0-5); LYMPHOCYTES 25.8 % (15-50); MCH 29.4 pg (26.0-34.0); MCHC 34.2 g/dL (31.0-37.0); MCV 86.1 fL (80.0-100.0); MEAN PLATELET VOLUME 10.6 fL (7.4-10.4); MONOCYTES 8.8 % (2-11); NEUTROPHILS 61.7 % (40-80); PLATELET COUNT 277 10x3/uL (130-400); RBC 4.45 10x6/uL (4.00-5.40); RDW 12.9 % (11.5-14.5); WBC 10.2 10x3/uL (4.8-10.8)
[2018-12-09 11:27] LABS: C-REACTIVE PROTEIN 4.1 mg/dL (0.0-0.9); VANCOMYCIN - TROUGH 14.5 ug/mL (10.0-20.0)
[2018-12-09 12:13] LABS: ERYTHROCYTE SEDIMENTATION RATE 37 mm/hr (0-30)
== END | disposition home or self-care (01) ==
LOC: D.LABREF 10:48
PROVIDERS: ATTEND Orthopaedic Surgery
DX: M86.10 Other acute osteomyelitis, unspecified site (principal); S91.002A Unspecified open wound, left ankle, initial encounter

== ENCOUNTER → 2018-12-16 11:29 | Outpatient (CLI) | payer MEDICARE, OTHER ==
[2018-12-05 06:16] VITALS: BMI 34.1
[2018-12-16 11:44] LABS: BASOPHILS 0.3 % (0-2); EOSINOPHILS 2.9 % (0-7); HEMATOCRIT 38.3 % (36.0-48.0); HEMOGLOBIN 12.9 g/dL (12-16); IMMATURE GRANULOCYTES 0.2 % (0-5); LYMPHOCYTES 26.5 % (15-50); MCH 29.4 pg (26.0-34.0); MCHC 33.7 g/dL (31.0-37.0); MCV 87.2 fL (80.0-100.0); MEAN PLATELET VOLUME 10.5 fL (7.4-10.4); MONOCYTES 6.7 % (2-11); NEUTROPHILS 63.4 % (40-80); PLATELET COUNT 304 10x3/uL (130-400); RBC 4.39 10x6/uL (4.00-5.40); RDW 13.1 % (11.5-14.5); WBC 10.3 10x3/uL (4.8-10.8)
[2018-12-16 12:04] LABS: C-REACTIVE PROTEIN 2.1 mg/dL (0.0-0.9); VANCOMYCIN - TROUGH 14.8 ug/mL (10.0-20.0)
[2018-12-16 12:57] LABS: ERYTHROCYTE SEDIMENTATION RATE 21 mm/hr (0-30)
== END | disposition home or self-care (01) ==
LOC: D.LABREF 11:29
PROVIDERS: ATTEND Orthopaedic Surgery
DX: M86.10 Other acute osteomyelitis, unspecified site (principal); Z79.2 Long term (current) use of antibiotics; S91.002A Unspecified open wound, left ankle, initial encounter

== ENCOUNTER → 2018-12-19 14:15 | Outpatient (CLI) | payer MEDICARE, OTHER ==
[2018-12-05 06:16] VITALS: BMI 34.1
== END | disposition home or self-care (01) ==
LOC: D.US 14:15
PROVIDERS: ATTEND Orthopaedic Surgery
DX: R60.0 Localized edema (principal)

== ENCOUNTER 2018-12-19 16:02 | Inpatient (IN) | payer MEDICARE, OTHER ==
[~2018-12-19] VITALS: Ht 172.7 cm; Wt 102.3 kg
[~2018-12-19 16:02] MED LIST changes: -ELIQUIS5 MG PO; -LEVAQUIN750 MG PO
[2018-12-19 16:38] VITALS: BP 130/77
[2018-12-19 17:12] LABS: BASOPHILS 0.2 % (0-2); EOSINOPHILS 2.3 % (0-7); HEMATOCRIT 36.4 % (36.0-48.0); HEMOGLOBIN 12.3 g/dL (12-16); IMMATURE GRANULOCYTES 0.3 % (0-5); LYMPHOCYTES 31.4 % (15-50); MCH 29.5 pg (26.0-34.0); MCHC 33.8 g/dL (31.0-37.0); MCV 87.3 fL (80.0-100.0); MEAN PLATELET VOLUME 9.9 fL (7.4-10.4); MONOCYTES 8.1 % (2-11); NEUTROPHILS 57.7 % (40-80); PLATELET COUNT 285 10x3/uL (130-400); RBC 4.17 10x6/uL (4.00-5.40); RDW 13.4 % (11.5-14.5); WBC 12.8 10x3/uL (4.8-10.8)
[2018-12-19 17:24] LABS: APTT 25.8 SECONDS (22.8-39.4); INR 0.98 (0.85-1.17); PROTIME 12.5 SECONDS (11.6-15.0)
[2018-12-19 17:25] LABS: ALBUMIN 3.6 g/dL (3.4-5.0); ANION GAP 11.5 mmol/L (8-16); BILIRUBIN - TOTAL 0.18 mg/dL (0.2-1.3); CALCIUM 9.3 mg/dL (8.5-10.1); CREATININE - SERUM 0.9 mg/dL (0.6-1.3); POTASSIUM - SERUM 3.5 mmol/L (3.5-5.1); PROTEIN - SERUM 7.7 g/dL (6.4-8.2)
--- NOTE | 2018-12-19 18:04 | NUR ---
REPORT CALLED TO LEANDRO PEÑA ON MED SURG 2260. PATIENT HAS A ROOM READY 3.
--- NOTE | 2018-12-19 19:33 | NUR ---
SPOKE WITH LUIS ANGEL GENERAL SCIENCE TEACHER ABOUT PATIENT PICC LINE STILL BEING IN ARM AND NO ORDERS TO REMOVE IT. NEEDS IV STARTED AND VASCULAR ACCESS NURSE NOT HERE UNTIL TOMORROW. PATIENT IN BED AND VS STABLE. BP SLIGHTLY HIGH. STATED SHE TOOK BP MEDS THIS AM AT HOME. FAMILY AT BEDSIDE. CALL LIGHT WITHIN REACH.
[2018-12-19] MEDS ORDERED: PROZAC20 MG PO (19:57)
--- NOTE | 2018-12-19 21:30 | NUR ---
BECAUSE OF BLOOD CLOTS, PICC LINE TO BE REMOVED BY VASCULAR NURSE TOMORROW PER PROGRAMMING MANAGER. PERIPHERAL IV 22 G STARTED IN RIGHT AC 1ST ATTEMPT. VANC PIGGYBACK INFUSING STARTED. REVIEWED HOME MEDS AND HISTORY. ASSESSMENT COMPLETE. NO OTHER NEEDS. WILL CONTINUE TO MONITOR.
[2018-12-19 21:43] VITALS: BP 178/87
[2018-12-20 00:21] VITALS: BP 178/60; Ht 172.7 cm; Wt 102.3 kg
[2018-12-20 01:28] VITALS: BP 157/82
[2018-12-20 04:59] VITALS: BP 169/79
[2018-12-20 05:16] LABS: BASOPHILS 0.4 % (0-2); EOSINOPHILS 2.8 % (0-7); HEMATOCRIT 35.6 % (36.0-48.0); HEMOGLOBIN 12.1 g/dL (12-16); IMMATURE GRANULOCYTES 0.3 % (0-5); LYMPHOCYTES 40.2 % (15-50); MCH 29.7 pg (26.0-34.0); MCV 87.3 fL (80.0-100.0); MEAN PLATELET VOLUME 10.3 fL (7.4-10.4); MONOCYTES 7.8 % (2-11); NEUTROPHILS 48.5 % (40-80); PLATELET COUNT 280 10x3/uL (130-400); RBC 4.08 10x6/uL (4.00-5.40); RDW 13.4 % (11.5-14.5); WBC 11.2 10x3/uL (4.8-10.8)
[2018-12-20 05:27] LABS: ALBUMIN 3.4 g/dL (3.4-5.0); ANION GAP 9.7 mmol/L (8-16); BILIRUBIN - TOTAL 0.23 mg/dL (0.2-1.3); CALCIUM 8.9 mg/dL (8.5-10.1); CARBON DIOXIDE 30.9 mmol/L (21.0-32.0); CREATININE - SERUM 0.9 mg/dL (0.6-1.3); MAGNESIUM - SERUM 1.8 mg/dL (1.8-2.4); POTASSIUM - SERUM 3.6 mmol/L (3.5-5.1); PROTEIN - SERUM 7.2 g/dL (6.4-8.2)
--- NOTE | 2018-12-20 07:20 | NUR ---
PT SITTING UP IN BED WITH EYES OPEN. PICC LINE PRESENT TO UPPER LEFT ARM, EDEMA PRESENT R/T BLOOD CLOT. 2ND IV LOCATED TO RIGHT AC SALINE LOCKED. BREATHING EVEN AND NONLABORED. DENIES ANY NEEDS AT THIS TIME. WILL CONTINUE TO MONITOR.
[2018-12-20 09:01] VITALS: BP 167/81
--- NOTE | 2018-12-20 11:29 | MORECARE ---
CASE MANAGEMENT DISCHARGE SUMMARY PATIENT: KAIT SILVA UNIT: [id number] ADM DATE: 12/19/18 AGE: 68 : 52 SEX: F ROOM/BED: D.2223 AUTHOR: KIET GARZA PHYSICIAN: REFERRING PHYSICIAN: RYDER FORRESTER MD DATE OF SERVICE: 12/20/18 Discharge Plan Patient Name: KAIT SILVA [facility] : 1950 Planned Disposition: Home Hlth Svc w Plan Readm Anticipated Discharge Date: Discharge Date: Expected LOS: Initial Reviewer: [email or web address] Initial Review Date: 12/19/2018 Generated: 12/20/18 12:29 pm Patient Name: KAIT SILVA Page 40107 at 1129 All edits/amendments must be made on the electronic document DICTATION DATE: 12/20/18 1129 VULNERABILITY RESEARCHER: HOSSEIN 12/20/18 1129 RPT#: [id number] DC DATE: STATUS: ADM IN [facility] [address] [place] [address] END OF REPORT
--- NOTE | 2018-12-20 11:39 | MORECARE ---
CASE MANAGEMENT DISCHARGE SUMMARY PATIENT: KAIT SILVA UNIT: [id number] ADM DATE: 12/19/18 AGE: 68 : 52 SEX: F ROOM/BED: D.2223 AUTHOR: KIET GARZA PHYSICIAN: REFERRING PHYSICIAN: RYDER FORRESTER MD DATE OF SERVICE: 12/20/18 Discharge Plan Patient Name: KAIT SILVA Facility: [facility]:[place] : 1950 Planned Disposition: Home Hlth Svc w Plan Readm Anticipated Discharge Date: Discharge Date: Expected LOS: Initial Reviewer: [email or web address] Initial Review Date: 12/19/2018 Generated: 12/20/18 12:38 pm Comments DCP- Discharge Planning Updated by [email or web address]: Noemy Marrero on 12/20/18 10:[address] Patient Name: KAIT SILVA Admission Status: ER Accout number: [id number] Admission Date: 12-19-2018 : 1950 Admission Diagnosis: Attending: USAMA, Current LOS: 1 Anticipated DC Date: Planned Disposition: Home Hlth Svc w Plan Readm Primary Insurance: MEDICARE A & B Discharge Planning Comments: CM MET WITH PATIENT ABOUT DC PLANS. STATES IS HAVING MID LINE TAKEN OUT AND THEN DC TO HOME. WILL RESUME [facility], STATES WILL NOT NEED TO [facility]ME [facility] BECAUSE DOCTOR IS PUTTING HER ON PO ANTIBIOTICS. CM WILL FOLLOW NEEDED. Trophy Assembler: Noemy Marrero DCPIA - Discharge Planning Initial Assessment Updated by [email or web address]: Noemy Marrero on 12/20/18 11:29 am * Is the patient Alert and Oriented? Yes * Community resources currently utilized Home Health * Please name any agencies selected above. [facility]. Last DP export: 12/20/18 10:29 a Patient Name: KAIT SILVA Page [id number] at 1139 All edits/amendments must be made on the electronic document DICTATION DATE: 12/20/18 1138 MMD UNIT TEACHER: HOSSEIN 12/20/18 1138 RPT#: [id number] DC DATE: STATUS: ADM IN [facility] [address] [place] [address] END OF REPORT
--- NOTE | 2018-12-20 11:53 | NUR ---
FSBS 101, NO TREATMENT NEEDED.
--- NOTE | 2018-12-20 12:00 | NUR ---
TOOK [employer] AND MACHINE TO PTS ROOM AND APPLIED/HOOKED UP. PT STATES SHE IS CONCERNED THAT HER DAILY MORNING MEDS HAVE NOT BEEN STARTED BACK YET. OLD DRESSING TAKEN OFF OF LEFT ANKLE, APPLIED [place] DRESSING. WILL CONT TO MONITOR.
[2018-12-20 13:26] VITALS: BP 170/76
[2018-12-20] MEDS ORDERED: LEVAQUIN750 MG PO (15:24)
[2018-12-20] MEDS ORDERED: ELIQUIS5 MG PO (15:24)
--- NOTE | 2018-12-20 16:57 | NUR ---
FSBS 297, TREATED WITH 6 UNITS OF INSULIN.
[2018-12-20 17:25] VITALS: BP 171/80
--- NOTE | 2018-12-26 08:13 | MORECARE ---
CASE MANAGEMENT DISCHARGE SUMMARY PATIENT: KAIT SILVA UNIT: [id number] ADM DATE: 12/19/18 AGE: 68 : 52 SEX: F ROOM/BED: D.2223 AUTHOR: KIET GARZA PHYSICIAN: REFERRING PHYSICIAN: RYDER FORRESTER MD DATE OF SERVICE: 12/26/18 Discharge Plan Patient Name: KAIT SILVA Facility: [facility]:[place] : 1950 Planned Disposition: Home Hlth Svc w Plan Readm Anticipated Discharge Date: Discharge Date: 12/20/2018 Expected LOS: 0 Initial Reviewer: [email or web address] Initial Review Date: 12/19/2018 Generated: 12/26/18 9:13 am DCP- Discharge Planning Updated by [email or web address]: Noemy Marrero on 12/20/18 10:[address] Patient Name: KAIT SILVA Admission Status: ER Accout number: [id number] Admission Date: 12-19-2018 : 1950 Admission Diagnosis: Attending: USAMA, Current LOS: 1 Anticipated DC Date: Planned Disposition: Home Hlth Svc w Plan Readm Primary Insurance: MEDICARE A & B Discharge Planning Comments: CM MET WITH PATIENT ABOUT DC PLANS. STATES IS HAVING MID LINE TAKEN OUT AND THEN DC TO HOME. WILL [facility], STATES WILL NOT NEED TO [facility]ME [facility] BECAUSE DOCTOR IS PUTTING HER ON PO ANTIBIOTICS. CM WILL FOLLOW NEEDED. Global President: Noemy Marrero DCPIA - Discharge Planning Initial Assessment Updated by [email or web address]: Noemy Marrero on 12/20/18 11:29 am * Is the patient Alert and Oriented? Yes * Community resources currently utilized Home Health * Please name any agencies selected above. [facility]. Last DP export: 12/20/18 10:39 a Patient Name: KAIT SILVA Page [id number] at 0813 All edits/amendments must be made on the electronic document DICTATION DATE: 12/26/18812 SUPERVISOR [employer]: HOSSEIN 12/26/18812 RPT#: [id number] DC DATE:12/20/18 STATUS: DIS IN [facility] [address] [place] [address] END OF REPORT
== END 2018-12-20 18:17 | disposition home or self-care (01) | DRG 315 ==
LOC: D.ER 16:02 → D.MS 18:07
PROVIDERS: Family Medicine; ADMIT Family Medicine; ATTEND Family Medicine
DX: T82.868A Thrombosis due to vascular prosthetic devices, implants and grafts, initial encounter (principal); M86.9 Osteomyelitis, unspecified; E11.69 Type 2 diabetes mellitus with other specified complication; I10 Essential (primary) hypertension; I25.10 Atherosclerotic heart disease of native coronary artery without angina pectoris; M19.90 Unspecified osteoarthritis, unspecified site

== ENCOUNTER → 2018-12-23 15:14 | Outpatient (CLI) | payer MEDICARE, OTHER ==
[2018-12-20 00:21] VITALS: BMI 34.2
[~2018-12-23 15:14] MED LIST changes: +ELIQUIS5 MG PO; +LEVAQUIN750 MG PO
[2018-12-23 16:12] LABS: CREATININE - SERUM 0.8 mg/dL (0.6-1.3); VANCOMYCIN - TROUGH 11.5 ug/mL (10.0-20.0)
== END | disposition home or self-care (01) ==
LOC: D.LABREF 15:14
PROVIDERS: ATTEND Family Medicine
DX: M86.10 Other acute osteomyelitis, unspecified site (principal); S91.002A Unspecified open wound, left ankle, initial encounter; Z51.81 Encounter for therapeutic drug level monitoring; Z79.2 Long term (current) use of antibiotics

== ENCOUNTER → 2018-12-30 13:07 | Outpatient (CLI) | payer MEDICARE, OTHER ==
[2018-12-20 00:21] VITALS: BMI 34.2
[2018-12-30 13:32] LABS: BASOPHILS 0.3 % (0-2); EOSINOPHILS 2.8 % (0-7); HEMATOCRIT 37.8 % (36.0-48.0); HEMOGLOBIN 12.7 g/dL (12-16); IMMATURE GRANULOCYTES 0.1 % (0-5); LYMPHOCYTES 31.3 % (15-50); MCH 29.1 pg (26.0-34.0); MCHC 33.6 g/dL (31.0-37.0); MCV 86.5 fL (80.0-100.0); MONOCYTES 8.8 % (2-11); NEUTROPHILS 56.7 % (40-80); PLATELET COUNT 239 10x3/uL (130-400); RBC 4.37 10x6/uL (4.00-5.40); RDW 13.1 % (11.5-14.5)
[2018-12-30 13:41] LABS: CREATININE - SERUM 0.9 mg/dL (0.6-1.3); VANCOMYCIN - TROUGH 11.4 ug/mL (10.0-20.0)
== END | disposition home or self-care (01) ==
LOC: D.LABREF 13:07
PROVIDERS: ATTEND Family Medicine
DX: E11.9 Type 2 diabetes mellitus without complications (principal); T14.8XXA Other injury of unspecified body region, initial encounter; L08.9 Local infection of the skin and subcutaneous tissue, unspecified; X58.XXXA Exposure to other specified factors, initial encounter

== ENCOUNTER → 2019-01-06 10:41 | Outpatient (CLI) | payer MEDICARE, OTHER ==
[2018-12-20 00:21] VITALS: BMI 34.2
[2019-01-06 10:57] LABS: BASOPHILS 0.3 % (0-2); EOSINOPHILS 2.3 % (0-7); HEMATOCRIT 38.2 % (36.0-48.0); HEMOGLOBIN 12.8 g/dL (12-16); IMMATURE GRANULOCYTES 0.2 % (0-5); LYMPHOCYTES 32.1 % (15-50); MCHC 33.5 g/dL (31.0-37.0); MCV 86.6 fL (80.0-100.0); MONOCYTES 10.1 % (2-11); PLATELET COUNT 211 10x3/uL (130-400); RBC 4.41 10x6/uL (4.00-5.40); RDW 13.4 % (11.5-14.5); WBC 10.2 10x3/uL (4.8-10.8)
[2019-01-06 11:15] LABS: C-REACTIVE PROTEIN 4.1 mg/dL (0.0-0.9)
[2019-01-06 13:06] LABS: ERYTHROCYTE SEDIMENTATION RATE 25 mm/hr (0-30)
== END | disposition home or self-care (01) ==
LOC: D.LABREF 10:41
PROVIDERS: ATTEND Family Medicine
DX: M86.9 Osteomyelitis, unspecified (principal)

== ENCOUNTER → 2020-06-29 09:00 | Outpatient (CLI) | payer MEDICARE ==
[2019-06-02 11:48] VITALS: BMI 33.3
[~2020-06-29 09:00] MED LIST changes: +CYCLOBENZAPRINE10 MG PO; +MEPERIDINE HCL50 MG PO; +OXYBUTYNIN CHLOR5 MG PO; +ZOFRAN ODT4 MG/UDTAB PO
--- NOTE | 2020-07-01 15:38 | ST ---
PATIENT:KAIT SILVA MEDICAL RECORD: [id number] SEX: F LOCATION:[facility] ORDER #: ADMISSION DATE: 06/29/20 AGE OF PATIENT: 69 REFERRING PHYSICIAN: INTERPRETING PHYSICIAN: DI REY MD DATE OF SERVICE: 06/29/2020 NUCLEAR STRESS TEST GATED: Gated is normal with normal wall motion and normal wall thickening, calculated EF is 65%. SPECT IMAGING: SPECT imaging was performed. FINDINGS: 1. Short axis view: Short axis view shows good uptake along the anterior wall, lateral wall and inferior wall. 2. Horizontal axis: Horizontal axis confirms good uptake along the anterior wall and inferior wall. 3. Vertical axis: Vertical axis shows good uptake along the lateral wall and septum. FINAL IMPRESSION: 1. Normal gated, normal wall motion, normal EF 65%. 2. Normal SPECT imaging. The patient with known history of coronary artery disease. The scan is felt low risk for any progression of [place] disease or restenosis. Continue risk factor modification and medical management recommended. TRANSINT:[id number] Voice Confirmation ID: [id number] DOCUMENT ID: [id number] DI REY MD at 1538 CC: [id number] DICTATION DATE: 06/30/20 0843 SALES REPRESENTATIVE [facility]: 07/01/20 0710 DEP CLI 06/29/[address] [address]
== END | disposition home or self-care (01) ==
LOC: D.HCCARDIO 09:00
PROVIDERS: ATTEND Internal Medicine Interventional Cardiology
DX: I20.9 Angina pectoris, unspecified (principal)

== ENCOUNTER 2020-07-30 13:54 | Outpatient (CLI) | payer MEDICARE ==
[2019-06-02 11:48] VITALS: BMI 33.3
== END 2020-07-30 23:59 | disposition home or self-care (01) ==
LOC: D.MAMMO 13:54
PROVIDERS: ATTEND Family Medicine
DX: Z12.31 Encounter for screening mammogram for malignant neoplasm of breast (principal)